=== PATIENT | female | born 1960 | race Two or more races ===

== ENCOUNTER 2017-02-11 11:59 | Observation (INO) | payer OTHER ==
[~2017-02-11] VITALS: Ht 167.6 cm; Wt 113.4 kg
[~2017-02-11 11:59] MED LIST: ALBU18; ATOR20TA50 PO; CARI-316; CEPH500C; CLIN1CAP4; DOXY75CA4; ENAL-3 PO; FURO20TA PO; GABA-494 PO; GLIP-116 PO; HYDR-1421; IBUP600T27; INSLANTI; LEVO500T21 PO; LEVO750T2; TERB250T37
[2017-02-11] MEDS ORDERED: ATOR40TA52 PO (12:24)
[2017-02-11] MEDS ORDERED: METF-370 PO (12:24)
[2017-02-11] MEDS ORDERED: LISI-275 PO (12:24)
[2017-02-11] MEDS ORDERED: GLIP-116 PO (12:24)
[2017-02-11] MEDS ORDERED: IBUP600T27 PO (12:26)
[2017-02-11] MEDS ORDERED: ONDA4TAB8 SL (12:26)
[2017-02-11 12:55] LABS: Basophils # (auto) 0.1 uL; Basophils % (auto) 1.1 % (0.0-2.0); Eosinophils # (auto) 0.1 uL; Eosinophils % (auto) 2.3 % (0.0-7.0); Hemoglobin 14.5 g/dL (12.2-16.2); Lymphocytes # (auto) 2.1 uL; Lymphocytes % (auto) 33.2 % (10.0-50.0); Mean Corpuscular Hemoglobin 29.9 pg (28.0-32.0); Mean Corpuscular Hgb Conc. 33.6 g/dL (32.0-36.0); Mean Corpuscular Volume 88.9 fL (80.0-100.0); Monocytes # (auto) 0.5 uL; Monocytes % (auto) 7.4 % (0.0-12.0); Neutrophils # (auto) 3.6 uL; Platelet Count (auto) 191 10^3/uL (140-450); Red Blood Cells 4.84 10^6/uL (4.0-5.20); Red Cell Distribution Width 13.1 % (11.8-14.3); White Blood Cell 6.3 10^3/uL (4.4-10.8)
[2017-02-11 13:14] LABS: Alanine Aminotransferase 21 U/L (13-56); Albumin 3.2 g/dL (3.4-5.0); Alkaline Phosphatase 108 U/L (45-117); Anion Gap 6 (5-15); Aspartate Aminotransferase 20 U/L (15-37); BUN/Creatinine Ratio 30.2; Bilirubin, Total 0.6 mg/dL (0.2-1.0); Blood Urea Nitrogen 19 mg/dL (7-18); Calcium 8.6 mg/dL (8.5-10.1); Carbon Dioxide 30 mmol/L (21-32); Chloride 101 mmol/L (98-107); GFR African American 126 mL/min; GFR Non-African American 104 mL/min; Glucose 281 mg/dL (74-106); Magnesium 2.2 mg/dL (1.6-2.6); Potassium 4.1 mmol/L (3.5-5.1); Sodium 137 mmol/L (136-145); Total Protein 6.8 g/dL (6.4-8.2)
[2017-02-11] MEDS ORDERED: MEPERIDINE HCL (25 MG/ML) 1ML VIAL IV ONE (15:30)
[2017-02-11] MEDS ORDERED: ONDANSETRON HCL 4 MG/2 ML VIAL IV ONE ×2 (15:30→21:00)
[2017-02-11 16:03] LABS: Urine Bacteria MANY /hpf (None Seen); Urine Blood 1+ /uL (Negative); Urine Mucus FEW (None Seen); Urine Specific Gravity 1.029 (1.001-1.035); Urine WBC 37 /hpf (0 - 5)
[2017-02-11] MEDS ORDERED: cefTRIAXone 1GM/50ML D5W 50 ML IV ONE (17:45)
[2017-02-11] MEDS ORDERED: MORPHINE SULFATE 10 MG/ML INJ 1ML SDV IV ONE (21:00)
[2017-02-11 22:47] VITALS: BP 147/71
== END 2017-02-11 23:10 | disposition short-term general hospital (02) | DRG 313 ==
LOC: ER 11:59 → EDBD 11:59 → OVERFLOW 13:03 → ER 23:10
PROVIDERS: ADMIT Family Medicine; ATTEND Family Medicine
DX: R07.89 Other chest pain (principal); E11.9 Type 2 diabetes mellitus without complications; N39.0 Urinary tract infection, site not specified; R42 Dizziness and giddiness; I10 Essential (primary) hypertension; E78.5 Hyperlipidemia, unspecified
CPT/HCPCS: 36415; 70450; 71010; 80053; 81001; 82962; 83605; 83735; 84484; 85025; 87040; 93005; 96365; 96375; 96376; 99285; G0378; J0696; J2175; J2270; J2405